=== PATIENT | female | born 1975 | race African-American/Black ===

== ENCOUNTER 2021-01-01 13:21 | Emergency (ER) | payer MEDICAID ==
[~2021-01-01] VITALS: Ht 160 cm; Wt 69.0 kg
[2021-01-01] MEDS ORDERED: HYDROCODONE/ACETAMINOPHEN 5/325MG TABLET PO ONE (15:30)
[2021-01-01] MEDS ORDERED: IBUP-2029 MT (15:34)
[2021-01-01] MEDS ORDERED: TRAM50TA3 MT (15:34)
[2021-01-01] MEDS ORDERED: ACYC200C MT (15:34)
[2021-01-01 16:19] VITALS: BP 130/88
== END 2021-01-01 16:44 | disposition home or self-care (01) ==
LOC: ER 13:21
DX: B02.9 Zoster without complications (principal)
CPT/HCPCS: 99283